=== PATIENT | female | born 1945 | race Caucasian/White ===

== ENCOUNTER 2020-08-03 14:01 | Outpatient (CLI) | payer MEDICARE, OTHER, SELFPAY ==
--- NOTE | 2020-08-03 14:21 | XR_ITS ---
WS: [id number] DEXA (DUAL ENERGY X-RAY ABSORPTIOMETRY) Bone mineral density was performed using a [employer] machine. HISTORY: POST MENOPAUSAL COMPARISON: 07/22/2018 Lumbar spine BMD (L1-L4): 0.997 g/cm2 T score: -1.5 Z score: 0.3 Total hip BMD: Left: 0.916 g/cm2. T score: -0.7 Z score: 1.1 Right: 0.919 g/cm2. T score: -0.7 Z score: 1.2 10 year probability of a major osteoporotic fracture is 11%. Compared to the prior study from 07/22/2018. Lumbar spine bone mineral density has decreased by 0.4%. Bilateral hips bone mineral density has decreased by 2.1%. XR/XR DEXA axial skeleton* [id number] IMPRESSION: OSTEOPENIA based upon the WHO classification for females. Significant decrease in bone mineral density in the hips since the prior study.
== END 2020-08-03 14:02 | disposition home or self-care (01) ==
PROVIDERS: PCP Family Medicine; Visit Provider Family Medicine
DX: Z78.0 Asymptomatic menopausal state (principal); M85.89 Other specified disorders of bone density and structure, multiple sites
CPT/HCPCS: 77080